=== PATIENT | male | born 1955 | race Caucasian/White ===

== ENCOUNTER 2021-03-16 11:22 | Day surgery (SDC) | payer BC, MEDICARE ==
[2021-03-14 18:06] VITALS: BMI 24.4
[~2021-03-16 11:22] MED LIST: LACTATED RINGERS 1,000 ML IV SCH; LIDOCAINE 1% (10MG/ML) FOR IV START INTRADERMA PRN
[2021-03-16 12:25] VITALS: TEMP 98.1
[2021-03-16] MEDS ORDERED: PROPOFOL 10 MG/ML 20 ML VIAL IV ONE (12:50)
--- NOTE | 2021-03-16 13:10 | P.PCN ---
Date of Procedure: 03/16/21 Procedure(s) Performed: BRIEF HISTORY: Patient is a 65-year-old pleasant white male scheduled for an elective colonoscopy as a part of evaluation of prior history of colon polyps. Last colonoscopy was 5 years ago. PROCEDURE PERFORMED: Colonoscopy with snare polypectomy. PREOPERATIVE DIAGNOSIS: History of colon polyps. IV sedation per Anesthesia. PROCEDURE: After informed consent was obtained, the patient, was brought into the endoscopy unit. IV sedation was administered by Anesthesia under continuous monitoring. Digital rectal examination was normal. External skin tags noted. Initially the Olympus CF-160 flexible video colonoscope was then inserted in the rectum, gradually advanced into the cecum without any difficulty. Careful examination was performed as the scope was gradually being withdrawn. Ileocecal valve and the appendiceal orifice were visualized and appeared normal. Prep was excellent. Mucosa of the cecum, ascending colon, transverse colon, normal. In the proximal transverse colon at 80 cm from the anal verge there was a 1.2 broad-based polyp that was removed by piecemeal snare polypectomy and complete polypectomy accomplished. Rest of the descending colon, sigmoid colon, and rectum appeared normal. Retroflexion was performed in the rectum and no lesions were seen. The patient tolerated the procedure well. IMPRESSION: 1.5 cm broad-based proximal transverse colon polyp status post polypectomy External skin tags RECOMMENDATIONS: Findings of this examination were discussed with the patient as well as his family. He was advised to follow with the biopsy results. If the biopsy report adenoma he can have a repeat colonoscopy in 3 years.
[2021-03-16 13:18] VITALS: RESP 16
[2021-03-16 13:31] VITALS: BP 125/78; PULSE 64
== END 2021-03-16 14:05 | disposition home or self-care (01) ==
LOC: ORWHC2ENDO 11:22
PROVIDERS: ATTEND Internal Medicine Gastroenterology
DX: Z12.11 Encounter for screening for malignant neoplasm of colon (principal); K64.4 Residual hemorrhoidal skin tags; D12.3 Benign neoplasm of transverse colon; E78.5 Hyperlipidemia, unspecified; F17.210 Nicotine dependence, cigarettes, uncomplicated; Z79.899 Other long term (current) drug therapy; Z86.010 Personal history of colon polyps
CPT/HCPCS: 88305; 45385; J2704

== ENCOUNTER 2024-06-13 13:05 | Day surgery (SDC) | payer MEDICARE ==
[2024-06-12 10:16] VITALS: BMI 25.0
[2024-06-13] MEDS: IV FLUID CONTINUATION 1,000 ML IV ONE (14:07)
[2024-06-13 14:12] VITALS: RESP 16; TEMP 97.6
[2024-06-13] MEDS: LACTATED RINGERS 1,000 ML IV SCH (14:16)
[2024-06-13] MEDS ORDERED: PROPOFOL 10 MG/ML 20 ML VIAL IV ONE (14:35)
--- NOTE | 2024-06-13 15:06 | P.PCN ---
Date of Procedure: 06/13/24 Procedure(s) Performed: BRIEF HISTORY: Patient is a 68-year-old pleasant white male scheduled for an elective colonoscopy as a part of screening for prior history of colon polyps. Last colonoscopy was in March 2021 and was noted to have a serrated adenoma. PROCEDURE PERFORMED: Colonoscopy with snare polypectomy. PREOPERATIVE DIAGNOSIS: Screening for history of colon polyps. IV sedation per Anesthesia. PROCEDURE: After informed consent was obtained, the patient, was brought into the endoscopy unit. IV sedation was administered by Anesthesia under continuous monitoring. Digital rectal examination was normal. Initially the Olympus CF-160 flexible video colonoscope was then inserted in the rectum, gradually advanced into the cecum without any difficulty. Careful examination was performed as the scope was gradually being withdrawn. Ileocecal valve and the appendiceal orifice were visualized and appeared normal. Prep was excellent. Mucosa of the cecum, ascending colon, appeared normal. The transverse colon there is a 5 mm sessile polyp removed by cold snare polypectomy. In the descending colon there was a 3 mm polyp removed by cold snare polypectomy. In the sigmoid colon there was a 5 mm and a 6 mm polyp removed by cold snare polypectomy. Rest of the sigmoid colon, and rectum appeared normal. Retroflexion was performed in the rectum and no lesions were seen. The patient tolerated the procedure well. IMPRESSION: 5 mm sessile transverse colon polyp status post cold snare polypectomy 3 mm polyp in the descending colon status post snare polypectomy 5 mm and 6 mm sigmoid colon polyp status post polypectomy RECOMMENDATIONS: Findings of this examination were discussed with the patient as well as his family.. She was advised to follow-up with the biopsy results. If the biopsy reveals adenoma he can have repeat colonoscopy in 3 years.
[2024-06-13 15:30] VITALS: BP 126/69; PULSE 59
== END 2024-06-13 15:45 | disposition home or self-care (01) ==
LOC: ORWHC2ENDO 13:05
PROVIDERS: ATTEND Internal Medicine Gastroenterology
DX: Z12.11 Encounter for screening for malignant neoplasm of colon (principal); D12.5 Benign neoplasm of sigmoid colon; D12.4 Benign neoplasm of descending colon; K63.5 Polyp of colon; E78.5 Hyperlipidemia, unspecified; J45.909 Unspecified asthma, uncomplicated; F17.210 Nicotine dependence, cigarettes, uncomplicated; Z79.899 Other long term (current) drug therapy; Z86.0101 Personal history of adenomatous and serrated colon polyps
CPT/HCPCS: 45385; J2704